=== PATIENT | female | born 1970 | race Caucasian/White ===

== ENCOUNTER 2023-11-16 09:32 | Emergency (ER) | payer OTHER ==
--- NOTE | 2023-11-16 09:47 | ED ---
Nausea/Vomiting/Diarrhea HPI - General Source: patient, police, RN notes reviewed Mode of arrival: EMS Limitations: no limitations - History of Present Illness MD complaint: nausea, vomiting <Jesenia Bradshaw - Last Filed: 11/16/23 09:46> - General Source: patient, RN notes reviewed Mode of arrival: EMS Limitations: no limitations <Mckinley Maria - Last Filed: 11/16/23 13:53> - General Chief complaint: Nausea/Vomiting/Diarrhea Stated complaint: vomiting Time Seen by Provider: 11/16/23 09:46 - History of Present Illness Initial comments: Quick Note: This is a 53-year-old female who presents to the emergency department for nausea, vomiting, and weakness. Symptoms started yesterday. She has generalized abdominal discomfort. She is currently at [facility] for opioid use and has been there for 4 days. (Jesenia Bradshaw) Patient is a 53-year-old female presenting to the emergency department from [facility]. Patient states she has been there for the last 4 days. Patient states since last night she has had nausea and vomiting. Patient states he has vomited close to 10 times. Patient did try Zofran without improvement of symp toms. No abdominal pain. No fever. No constipation or diarrhea. No history of chronic similar symptoms previously. (Mckinley Mraia) - Related Data Home Medications Medication Instructions Recorded Confirmed Acetaminophen Tab [Tylenol] 650 mg PO Q4H PRN 11/16/23 11/16/23 Calcium Carbonate [Tums] 1,000 mg PO Q4H PRN 11/16/23 11/16/23 Calcium/Magnesium/Zinc/Vitamin D 1 tab PO TID PRN 11/16/23 11/16/23 334/134/5mg Ibuprofen [Motrin Ib] 600 mg PO Q6H PRN 11/16/23 11/16/23 Methadone HCl [Methadone Intensol] 190 mg PO DAILY 11/16/23 11/16/23 Mirtazapine [Remeron] 15 mg PO HS 11/16/23 11/16/23 PHENobarbitaL [PHENobarbital] See Taper PO DIRECTED 11/16/23 11/16/23 cloNIDine HCL [Catapres] 0.1 mg PO QID 11/16/23 11/16/23 ondansetron HCL [Zofran] 8 mg PO Q6H PRN 11/16/23 11/16/23 Previous Rx's Medication Instructions Recorded Metoclopramide HCl 5 ml PO QID PRN #50 ml 11/16/23 Allergies Allergy/AdvReac Type Severity Reaction Status Date / Time No Known Allergies Allergy Verified 11/16/23 09:44 Review of Systems ROS Other: All systems not noted in ROS Statement are negative. <Jesenia Bradshaw - Last Filed: 11/16/23 09:46> ROS Other: All systems not noted in ROS Statement are negative. Constitutional: Denies: fever Eyes: Denies: eye pain ENT: Denies: ear pain Respiratory: Denies: cough Cardiovascular: Denies: chest pain Endocrine: Denies: fatigue Gastrointestinal: Reports: nausea, vomiting. Denies: abdominal pain, diarrhea, constipation Genitourinary: Denies: dysuria Musculoskeletal: Denies: back pain <Mckinley Maria - Last Filed: 11/16/23 13:53> ROS Statement: Those systems with pertinent positive or pertinent negative responses have been documented in the HPI. Past Medical History Past Medical History: No Reported History, Hypertension History of Any Multi-Drug Resistant Organisms: None Reported Past Surgical History: No Surgical Hx Reported Past Psychological History: No Psychological Hx Reported, Anxiety, Depression Smoking Status: Current every day smoker Past Alcohol Use History: None Reported Past Drug Use History: Opiates, Prescription Drug Abuse <Jesenia Bradshaw - Last Filed: 11/16/23 09:46> General Exam Limitations: no limitations <Jesenia Bradshaw - Last Filed: 11/16/23 09:46> Limitations: no limitations General appearance: alert, in no apparent distress Head exam: Present: normocephalic Eye exam: Present: normal appearance, PERRL, EOMI ENT exam: Present: normal oropharynx Neck exam: Present: normal inspection Cardiovascular Exam: Present: regular rate, normal rhythm GI/Abdominal exam: Present: soft. Absent: tenderness, guarding, rebound, rigid, pulsatile mass Extremities exam: Present: normal inspection. Absent: pedal edema, calf tenderness Neurological exam: Present: alert. Absent: motor sensory deficit Psychiatric exam: Present: normal affect, normal mood Skin exam: Present: normal color <Mckinley Maria - Last Filed: 11/16/23 13:53> - General Exam Comments Initial Comments: Visual Physical Exam Vital signs reviewed General: Well-appearing, nontoxic, no acute distress. Head: Normocephalic, atraumatic Eyes: PERRLA, EOMI ENT: Airway patent Chest: Nonlabored breathing Skin: No visual rash, normal skin tone Neuro: Alert and oriented 3 Musculoskeletal: No gross abnormalities (Jesenia Bradshaw) Course Vital Signs 11/16/23 11/16/23 09:41 13:28 Temperature 98 F Pulse Rate 65 89 Respiratory 18 18 Rate Blood Pressure 126/78 130/77 O2 Sat by Pulse 99 99 Oximetry Medical Decision Making <Jesenia Bradshaw - Last Filed: 11/16/23 09:46> - Lab Data Result diagrams: 11/16/23 11:05 11/16/23 11:05 <Mckinley Maria - Last Filed: 11/16/23 13:53> - Medical Decision Making I performed the QuickNote portion of this chart. Signed Jesenia Bradshaw PA-C. (Jesenia Bradshaw) Was pt. sent in by a medical professional or institution ([facility], [facility], urgent care, hospital, or senior care...) When possible be specific @ -[Patient was transferred from [facility] rehab facility did you speak to anyone other than the patient for history (EMS, parent, family, police, friend...)? What history was obtained from this source @ -No Did you review nursing and triage notes (agree or disagree)? Why? @ -I reviewed and agree with nursing and triage notes Were old charts reviewed (outside hosp., previous admission, EMS record, old EKG, old radiological studies, urgent care reports/EKG's, senior care records)? Report findings @ -Reviewed sheet from [facility] Differential Diagnosis (chest pain, altered mental status, abdominal pain women, abdominal pain men, vaginal bleeding, weakness, fever, dyspnea, syncope, headache, dizziness, GI bleed, back pain, seizure, CVA, palpatations, mental health, musculoskeletal)? @ -Differential Abdominal Pain Women: Appendicitis, Cholecystitis, diverticulosis, ischemic bowel, pancreatitis, hepatitis, UTI, gastroenteritis, AAA, incarcerated hernia, bowel obstruction, constipation, inflammatory bowel, hepatitis, peptic ulcer disease, splenic infarction, perforated viscus, vulvitis, ovarian torsion, PID, kidney stone, placenta abruption, this is not meant to be an all-inclusive list EKG interpreted by me (3pts min.). @ -As above X-rays interpreted by me (1pt min.). @ -None done CT interpreted by me (1pt min.). @ -None done U/S interpreted by me (1pt. min.). @ -None done What testing was considered but not performed or refused? (CT, X-rays, U/S, labs)? Why? @ -None What meds were considered but not given or refused? Why? @ -None Did you discuss the management of the patient with other professionals (professionals i.e. Dr., PA, [facility], lab, RT, psych nurse, social science analyst, study abroad coordinator, teacher, chief program officer, insurance case manager)? Give summary @ -No Was smoking cessation discussed for >3mins.? @ -No Was critical care preformed (if so, how long)? @ -No Were there social determinants of health that impacted care today? How? (Homele ssness, low income, unemployed, alcoholism, drug addiction, transportation, low edu. Level, literacy, decrease access to med. care, halfway, rehab)? @ -No Was there de-escalation of care discussed even if they declined (Discuss DNR or withdrawal of care, Hospice)? DNR status @ -No What co-morbidities impacted this encounter? (DM, HTN, Smoking, COPD, CAD, Cancer, CVA, ARF, Chemo, Hep., AIDS, mental health diagnosis, sleep apnea, morbid obesity)? @ -Opioid abuse Was patient admitted / discharged? Hospital course, mention meds given and route, prescriptions, significant lab abnormalities, going to OR and other pertinent info. @ -Patient reevaluated and feeling much better. Patient sitting upright at bedside. Patient is updated on results and need for follow-up. Patient will be prescribed Reglan as needed Undiagnosed new problem with uncertain prognosis? @ -No Drug Therapy requiring intensive monitoring for toxicity (Heparin, Nitro, Insulin, Cardizem)? @ -No Were any procedures done? @ -No Diagnosis/symptom? @ -Nausea and vomit Acute, or Chronic, or Acute on Chronic? @ -Acute Uncomplicated (without systemic symptoms) or Complicated (systemic symptoms)? @ -Default Side effects of treatment? @ -No Exacerbation, Progression, or Severe Exacerbation? @ -No Poses a threat to life or bodily function? How? (Chest pain, USA, PA, pneumonia, PE, COPD, DKA, ARF, appy, cholecystitis, CVA, Diverticulitis, Homicidal, Suicidal, threat to staff... and all critical care pts) @ -No (Mckinley Maria) - Lab Data Lab Results 11/16/23 11/16/23 11/16/23 Range/Units 11:05 11:05 11:05 WBC 9.9 (3.8-10.6) k/uL RBC 4.52 (3.80-5.40) m/uL Hgb 12.8 (11.4-16.0) gm/dL Hct 40.8 (34.0-46.0) % MCV 90.3 (80.0-100.0) fL MCH 28.2 (25.0-35.0) pg MCHC 31.3 (31.0-37.0) g/dL RDW 13.6 (11.5-15.5) % Plt Count 324 (150-450) k/uL MPV 7.8 Neutrophils % 87 % Lymphocytes % 9 % Monocytes % 3 % Eosinophils % 0 % Basophils % 0 % Neutrophils # 8.6 H (1.3-7.7) k/uL Lymphocytes # 0.9 L (1.0-4.8) k/uL Monocytes # 0.3 (0-1.0) k/uL Eosinophils # 0.0 (0-0.7) k/uL Basophils # 0.0 (0-0.2) k/uL Sodium 139 (137-145) mmol/L Potassium 4.7 (3.5-5.1) mmol/L Chloride 104 (98-107) mmol/L Carbon Dioxide 30 (22-30) mmol/L Anion Gap 5 mmol/L BUN 15 (7-17) mg/dL Creatinine 0.78 (0.52-1.04) mg/dL Est GFR (CKD-EPI)AfAm >90 (>60 ml/min/1.73 sqM) Est GFR (CKD-EPI)NonAf 87 (>60 ml/min/1.73 sqM) Glucose 89 (74-99) mg/dL Calcium 9.3 (8.4-10.2) mg/dL Total Bilirubin 0.3 (0.2-1.3) mg/dL AST 21 (14-36) U/L ALT 15 (4-34) U/L Alkaline Phosphatase 84 (38-126) U/L Total Protein 6.7 (6.3-8.2) g/dL Albumin 3.7 (3.5-5.0) g/dL Amylase 49 (30-110) U/L Lipase 80 (23-300) U/L Influenza Type A (PCR) Not Detected (Not Detectd) Influenza Type B (PCR) Not Detected (Not Detectd) RSV (PCR) Not Detected (Not Detectd) SARS-CoV-2 (PCR) Not Detected (Not Detectd) Disposition <Jesenia Bradshaw - Last Filed: 11/16/23 09:46> Is patient prescribed a controlled substance at d/c from ED?: No Time of Disposition: 13:51 <Mckinley Maria - Last Filed: 11/16/23 13:53> Clinical Impression: Vomiting Disposition: HOME SELF-CARE Condition: Stable Instructions (If sedation given, give patient instructions): Acute Nausea and Vomiting (ED) Additional Instructions: Please do follow-up with primary care physician in the next 1 or 2 days for recheck. Return for abdominal pain, fever, not tolerating oral intake, worsening symptoms or other concerns. Zofran or prescription for Reglan as needed for nausea or vomiting Prescriptions: Metoclopramide HCl 5 ml PO QID PRN #50 ml PRN Reason: Nausea Referrals: Dariel Cain MD [REFERRING] - 1-2 days
[2023-11-16 10:26] VITALS: RESP 18
[2023-11-16 11:26] LABS: ALT 15 U/L (4-34); AST 21 U/L (14-36); African American GFR (CKD) >90 (>60 ml/min/1.73 sqM); Albumin 3.7 g/dL (3.5-5.0); Alkaline Phosphatase 84 U/L (38-126); Amylase 49 U/L (30-110); Anion Gap 5 mmol/L; Blood Urea Nitrogen 15 mg/dL (7-17); Calcium 9.3 mg/dL (8.4-10.2); Carbon Dioxide 30 mmol/L (22-30); Chloride 104 mmol/L (98-107); Glucose 89 mg/dL (74-99); Lipase 80 U/L (23-300); Non-African American GFR(CKD) 87 (>60 ml/min/1.73 sqM); Potassium 4.7 mmol/L (3.5-5.1); Sodium 139 mmol/L (137-145); Total Bilirubin 0.3 mg/dL (0.2-1.3); Total Protein 6.7 g/dL (6.3-8.2)
[2023-11-16 11:47] LABS: Basophils % (A) 0 %; Eosinophils % (A) 0 %; HCT 40.8 % (34.0-46.0); HGB 12.8 gm/dL (11.4-16.0); Lymphocytes # (A) 0.9 k/uL (1.0-4.8); Lymphocytes % (A) 9 %; MCH 28.2 pg (25.0-35.0); MCHC 31.3 g/dL (31.0-37.0); MCV 90.3 fL (80.0-100.0); Mean Platelet Volume 7.8; Monocytes # (A) 0.3 k/uL (0-1.0); Monocytes % (A) 3 %; Neutrophils # (A) 8.6 k/uL (1.3-7.7); Neutrophils % (A) 87 %; Platelet Count 324 k/uL (150-450); RBC 4.52 m/uL (3.80-5.40); RDW 13.6 % (11.5-15.5); WBC 9.9 k/uL (3.8-10.6)
[2023-11-16] MEDS: FAMOTIDINE 20 MG/2 ML VIAL IV STA (12:58)
[2023-11-16] MEDS: METOCLOPRAMIDE 5 MG/ML 2 ML VIAL IVP STA (12:58)
[2023-11-16] MEDS: SODIUM CHLORIDE 0.9% 1,000 ML IV STA (12:58)
[2023-11-16] MEDS: ONDANSETRON 4 MG/2 ML VIAL IVP STA (12:58)
[2023-11-16 14:15] VITALS: BP 122/68; PULSE 75; TEMP 98.1
== END 2023-11-16 14:11 | disposition home or self-care (01) ==
LOC: EC 09:32
DX: R11.2 Nausea with vomiting, unspecified (principal); F11.10 Opioid abuse, uncomplicated; F17.200 Nicotine dependence, unspecified, uncomplicated
CPT/HCPCS: 36415; 80053; 82150; 83690; 85025; 87636; 99284; 96374; 96375 ×2; 96361; J2765; J2405; J3490

== ENCOUNTER 2024-01-05 10:26 | Emergency (ER) | payer OTHER ==
[2024-01-05 11:46] LABS: Basophils % (A) 0 %; Eosinophils % (A) 0 %; HGB 13.3 gm/dL (11.4-16.0); Lymphocytes # (A) 1.2 k/uL (1.0-4.8); Lymphocytes % (A) 8 %; MCH 28.7 pg (25.0-35.0); MCHC 31.7 g/dL (31.0-37.0); MCV 90.6 fL (80.0-100.0); Mean Platelet Volume 8.2; Monocytes # (A) 0.3 k/uL (0-1.0); Monocytes % (A) 2 %; Neutrophils # (A) 12.6 k/uL (1.3-7.7); Neutrophils % (A) 89 %; Platelet Count 326 k/uL (150-450); RBC 4.64 m/uL (3.80-5.40); RDW 13.6 % (11.5-15.5); WBC 14.2 k/uL (3.8-10.6)
--- NOTE | 2024-01-05 11:48 | ED ---
Nausea/Vomiting/Diarrhea HPI - General Chief complaint: Nausea/Vomiting/Diarrhea Stated complaint: Hypertension Time Seen by Provider: 01/05/24 10:33 Source: patient, EMS, RN notes reviewed Mode of arrival: EMS Limitations: no limitations - History of Present Illness Initial comments: This is a 53 year old female who presents to the emergency department for nausea, vomiting, and elevated blood pressure. Patient is currently at [facility] for fentanyl abuse and has been there for 5 days. States that she is on methadone and she is reportedly on the max dose of methadone. She started to develop nausea and vomiting at [facility] and was also noted to be hypertensive. Patient complaining of lower abdominal pain as well. [facility] believes that the patient may be withdrawing. Currently treated with clonidine 0.3 mg for the blood pressure. Received this around 9 AM. MD complaint: nausea, vomiting, abdominal pain - Related Data Home Medications Medication Instructions Recorded Confirmed Acetaminophen Tab [Tylenol] 650 mg PO Q4H PRN 11/16/23 11/16/23 Calcium Carbonate [Tums] 1,000 mg PO Q4H PRN 11/16/23 11/16/23 Calcium/Magnesium/Zinc/Vitamin D 1 tab PO TID PRN 11/16/23 11/16/23 334/134/5mg Ibuprofen [Motrin Ib] 600 mg PO Q6H PRN 11/16/23 11/16/23 Methadone HCl [Methadone Intensol] 190 mg PO DAILY 11/16/23 11/16/23 Mirtazapine [Remeron] 15 mg PO HS 11/16/23 11/16/23 PHENobarbitaL [PHENobarbital] See Taper PO DIRECTED 11/16/23 11/16/23 cloNIDine HCL [Catapres] 0.1 mg PO QID 11/16/23 11/16/23 ondansetron HCL [Zofran] 8 mg PO Q6H PRN 11/16/23 11/16/23 Previous Rx's Medication Instructions Recorded Metoclopramide HCl 5 ml PO QID PRN #50 ml 11/16/23 Ondansetron Odt [Zofran Odt] 4 mg PO Q8HR PRN #20 tab 01/05/24 Allergies Allergy/AdvReac Type Severity Reaction Status Date / Time No Known Allergies Allergy Verified 11/16/23 09:44 Review of Systems ROS Statement: Those systems with pertinent positive or pertinent negative responses have been documented in the HPI. ROS Other: All systems not noted in ROS Statement are negative. Past Medical History Past Medical History: Hypertension History of Any Multi-Drug Resistant Organisms: None Reported Past Surgical History: No Surgical Hx Reported Past Psychological History: Anxiety, Depression Smoking Status: Current every day smoker Past Alcohol Use History: None Reported Past Drug Use History: Opiates, Prescription Drug Abuse General Exam Limitations: no limitations General appearance: alert, in distress, other (shaking) Respiratory exam: Present: normal lung sounds bilaterally. Absent: respiratory distress, wheezes, rales, rhonchi, stridor Cardiovascular Exam: Present: regular rate, normal rhythm, normal heart sounds. Absent: systolic murmur, diastolic murmur, rubs, gallop, clicks GI/Abdominal exam: Present: soft, tenderness (Lower abdomen), normal bowel sounds. Absent: distended, guarding, rebound, rigid Neurological exam: Present: alert, oriented X3, CN II-XII intact Psychiatric exam: Present: normal affect, normal mood Skin exam: Present: warm, dry, intact, normal color. Absent: rash Course Vital Signs 01/05/24 01/05/24 01/05/24 10:55 11:56 13:09 Temperature 97 F L Pulse Rate 64 64 65 Respiratory 16 18 18 Rate Blood Pressure 181/85 130/116 177/72 O2 Sat by Pulse 100 97 100 Oximetry 01/05/24 14:51 Temperature 98.2 F Pulse Rate 77 Respiratory 18 Rate Blood Pressure 138/97 O2 Sat by Pulse 97 Oximetry Medical Decision Making - Medical Decision Making This is a 53 year old female who presents to the emergency department for nausea, vomiting, and hypertension. Was pt. sent in by a medical professional or institution? @ -No Did you speak to anyone other than the patient for history? @ -EMS and [facility] provided the majority of the history. Did you review nursing and triage notes? @ -Yes, and I agree, it is accurate with regards to the patient's symptoms. Were old charts reviewed? @ -No Differential Diagnosis? @ -Differential Nausea and Vomiting: Gastroenteritis, cholecystitis, appendicitis, pancreatitis, migraine, benign positional vertigo, food borne illness, pyelonephritis, irritable bowel syndrome, influenza, Covid, GERD, incarcerated hernia, intestinal obstruction, this is not meant to be an all-inclusive list. EKG interpreted by me (3pts min.)? @ -EKG interpreted by me demonstrating the following: Sinus rhythm. Ventricular rate 70 bpm, VA interval 166 ms, QRS duration 81 ms, QTc 426 ms. X-rays interpreted by me (1pt min.)? @ -Not obtained CT interpreted by me (1pt min.)? @ -CT scan of the abdomen and pelvis obtained. My interpretation identifies moderate stool burden. U/S interpreted by me (1pt. min.)? @ -Not obtained What testing was considered but not performed? (CT, X-rays, U/S, labs)? Why? @ -None What meds were considered but not given? Why? @ -None Did you discuss the management of the patient with other professionals? @ -No Did you reconcile home meds? @ -No Was smoking cessation discussed for >3mins.? @ -I discussed smoking cessation for greater than 3 minutes. The risk of smoking were discussed with the patient including but not limited to risks of cancer, stroke, coronary artery disease and COPD. Also discussed with patient were multiple methods of quitting smoking. Lastly we discussed the financial cost of smoking. Was critical care preformed (if so, how long)? @ -No Were there social determinants of health that impacted care today? How? (Homelessness, low income, unemployed, alcoholism, drug addiction, transportation, low edu. Level, literacy, decrease access to med. care, skilled nursing, rehab)? @ -Drug addiction, leading to the patient being on methadone and experiencing withdrawal symptoms. Was there de-escalation of care discussed even if they declined? (Discuss DNR or withdrawal of care, Hospice)? @ -No What co-morbidities impacted this encounter? (DM, HTN, Smoking, COPD, CAD, Cancer, CVA, Hep., AIDS, mental health diagnosis, sleep apnea, morbid obesity)? @ -HTN, drug addiction, smoking Was patient admitted / discharged? @ -Discharged. Lab work demonstrates mild leukocytosis and signs of dehydra tion. Urinalysis negative for signs of infection. Urine drug screen also positive for cocaine. CT scan of the abdomen and pelvis demonstrates moderate stool throughout the colon suggestive of constipation. She has a nonspecific mildly distended gallbladder. Patient denies any pain in this region. She was treated with IV fluids, Zofran, and Toradol with improvement in symptoms. Ativan administered as well for the patient's agitation. She had significant symptomatic improvement and was tolerating oral intake. She also continued to walk out of the emergency department to go smoke cigarettes despite being told multiple times this was not okay. Prescription for Zofran provided with dosing instructions reviewed. She is advised to slowly advance her diet as tolerated and remain well-hydrated. Patient discharged back to [facility] in stable condition. Undiagnosed new problem with uncertain prognosis? @ -None Drug Therapy requiring intensive monitoring for toxicity (Heparin, Nitro, Insulin, Cardizem)? @ -None Were any procedures done? @ -None Diagnosis/symptom? @ -Nausea and vomiting, withdrawals Acute, or Chronic, or Acute on Chronic? @ -Acute Uncomplicated (without systemic symptoms) or Complicated (systemic symptoms)? @ -Uncomplicated Side effects of treatment? @ -None Exacerbation, Progression, or Severe Exacerbation] @ -Not applicable Poses a threat to life or bodily function? @ -No Return precautions reviewed in depth, the patient is instructed to return to the emergency department with any new, worsening, or concerning symptoms. Patient verbalized understanding. This case was discussed in detail with the attending ED physician, Dr. Feldman. Presentation, findings, and treatment plan discussed in detail as well. - Lab Data Result diagrams: 01/05/24 10:37 01/05/24 11:42 Lab Results 01/05/24 01/05/24 01/05/24 Range/Units 10:37 11:41 11:41 WBC 14.2 H (3.8-10.6) k/uL RBC 4.64 (3.80-5.40) m/uL Hgb 13.3 (11.4-16.0) gm/dL Hct 42.0 (34.0-46.0) % MCV 90.6 (80.0-100.0) fL MCH 28.7 (25.0-35.0) pg MCHC 31.7 (31.0-37.0) g/dL RDW 13.6 (11.5-15.5) % Plt Count 326 (150-450) k/uL MPV 8.2 Neutrophils % 89 % Lymphocytes % 8 % Monocytes % 2 % Eosinophils % 0 % Basophils % 0 % Neutrophils # 12.6 H (1.3-7.7) k/uL Lymphocytes # 1.2 (1.0-4.8) k/uL Monocytes # 0.3 (0-1.0) k/uL Eosinophils # 0.0 (0-0.7) k/uL Basophils # 0.0 (0-0.2) k/uL Sodium (137-145) mmol/L Potassium (3.5-5.1) mmol/L Chloride (98-107) mmol/L Carbon Dioxide (22-30) mmol/L Anion Gap mmol/L BUN (7-17) mg/dL Creatinine (0.52-1.04) mg/dL Est GFR (CKD-EPI)AfAm (>60 ml/min/1.73 sqM) Est GFR (CKD-EPI)NonAf (>60 ml/min/1.73 sqM) Glucose (74-99) mg/dL Calcium (8.4-10.2) mg/dL Magnesium (1.6-2.3) mg/dL Total Bilirubin (0.2-1.3) mg/dL AST (14-36) U/L ALT (4-34) U/L Alkaline Phosphatase (38-126) U/L Troponin I (0.000-0.034) ng/mL Total Protein (6.3-8.2) g/dL Albumin (3.5-5.0) g/dL Amylase (30-110) U/L Lipase (23-300) U/L Urine Color Colorless Urine Appearance Clear (Clear) Urine pH 7.5 (5.0-8.0) Ur Specific Ubly 1.016 (1.001-1.035) Urine Protein Negative (Negative) Urine Glucose (UA) Negative (Negative) Urine Ketones Negative (Negative) Urine Blood Negative (Negative) Urine Nitrite Negative (Negative) Urine Bilirubin Negative (Negative) Urine Urobilinogen <2.0 (<2.0) mg/dL Ur Leukocyte Esterase Trace H (Negative) Urine WBC 2 (0-5) /hpf Ur Squamous Epith Cells 2 (0-4) /hpf Urine Bacteria Occasional H (None) /hpf Urine Mucus Rare H (None) /hpf Urine Opiates Screen Not Detected (NotDetected) Ur Oxycodone Screen Not Detected (NotDetected) Urine Methadone Screen Detected H (NotDetected) Ur Barbiturates Screen Not Detected (NotDetected) U Tricyclic Antidepress Not Detected (NotDetected) Ur Phencyclidine Scrn Not Detected (NotDetected) Ur Amphetamines Screen Not Detected (NotDetected) U Methamphetamines Scrn Not Detected (NotDetected) U Benzodiazepines Scrn Not Detected (NotDetected) Urine Cocaine Screen Detected H (NotDetected) U Marijuana (THC) Screen Not Detected (NotDetected) 01/05/24 01/05/24 Range/Units 11:42 11:42 WBC (3.8-10.6) k/uL RBC (3.80-5.40) m/uL Hgb (11.4-16.0) gm/dL Hct (34.0-46.0) % MCV (80.0-100.0) fL MCH (25.0-35.0) pg MCHC (31.0-37.0) g/dL RDW (11.5-15.5) % Plt Count (150-450) k/uL MPV Neutrophils % % Lymphocytes % % Monocytes % % Eosinophils % % Basophils % % Neutrophils # (1.3-7.7) k/uL Lymphocytes # (1.0-4.8) k/uL Monocytes # (0-1.0) k/uL Eosinophils # (0-0.7) k/uL Basophils # (0-0.2) k/uL Sodium 141 (137-145) mmol/L Potassium 4.7 (3.5-5.1) mmol/L Chloride 104 (98-107) mmol/L Carbon Dioxide 31 H (22-30) mmol/L Anion Gap 6 mmol/L BUN 28 H (7-17) mg/dL Creatinine 0.84 (0.52-1.04) mg/dL Est GFR (CKD-EPI)AfAm >90 (>60 ml/min/1.73 sqM) Est GFR (CKD-EPI)NonAf 79 (>60 ml/min/1.73 sqM) Glucose 124 H (74-99) mg/dL Calcium 9.7 (8.4-10.2) mg/dL Magnesium 1.9 (1.6-2.3) mg/dL Total Bilirubin 0.4 (0.2-1.3) mg/dL AST 23 (14-36) U/L ALT 15 (4-34) U/L Alkaline Phosphatase 109 (38-126) U/L Troponin I 0.017 (0.000-0.034) ng/mL Total Protein 7.5 (6.3-8.2) g/dL Albumin 4.4 (3.5-5.0) g/dL Amylase 60 (30-110) U/L Lipase 121 (23-300) U/L Urine Color Urine Appearance (Clear) Urine pH (5.0-8.0) Ur Specific Ubly (1.001-1.035) Urine Protein (Negative) Urine Glucose (UA) (Negative) Urine Ketones (Negative) Urine Blood (Negative) Urine Nitrite (Negative) Urine Bilirubin (Negative) Urine Urobilinogen (<2.0) mg/dL Ur Leukocyte Esterase (Negative) Urine WBC (0-5) /hpf Ur Squamous Epith Cells (0-4) /hpf Urine Bacteria (None) /hpf Urine Mucus (None) /hpf Urine Opiates Screen (NotDetected) Ur Oxycodone Screen (NotDetected) Urine Methadone Screen (NotDetected) Ur Barbiturates Screen (NotDetected) U Tricyclic Antidepress (NotDetected) Ur Phencyclidine Scrn (NotDetected) Ur Amphetamines Screen (NotDetected) U Methamphetamines Scrn (NotDetected) U Benzodiazepines Scrn (NotDetected) Urine Cocaine Screen (NotDetected) U Marijuana (THC) Screen (NotDetected) Disposition Clinical Impression: Nausea and vomiting, Hypertension, Nicotine dependence Disposition: HOME SELF-CARE Instructions (If sedation given, give patient instructions): Acute Nausea and Vomiting (ED) Additional Instructions: Return to the emergency department with any new, worsening, or concerning symptoms. Take the Zofran up to every 8 hours as needed for nausea and vomiting. Slowly advance your diet as tolerated and remain well-hydrated. Follow up with your primary care provider in 1-2 days. Prescriptions: Ondansetron Odt [Zofran Odt] 4 mg PO Q8HR PRN #20 tab PRN Reason: Nausea And Vomiting Is patient prescribed a controlled substance at d/c from ED?: No Referrals: None,Stated [Primary Care Provider] - 1-2 days Time of Disposition: 14:27
[2024-01-05 11:52] LABS: Appearance,Urine Clear (Clear); Bacteria,Urine Occasional /hpf; Bilirubin,Urine Negative (Negative); Blood,Urine Negative (Negative); Color,Urine Colorless; Glucose,Urine (UA) Negative (Negative); Ketones,Urine Negative (Negative); Leukocyte Esterase,Urine Trace (Negative); Mucus,Urine Rare /hpf; Nitrite,Urine Negative (Negative); PH, Urine 7.5 (5.0-8.0); Protein,Urine Negative (Negative); Specific Gravity,Urine 1.016 (1.001-1.035); Squamous Epithelial Cell,Urine 2 /hpf (0-4); Urobilinogen,Urine <2.0 mg/dL (<2.0); WBC,Urine 2 /hpf (0-5)
[2024-01-05] MEDS: LORazepam 2 MG/ML INJ IV STA ×2 (11:52→12:36)
[2024-01-05] MEDS: KETOROLAC 15 MG/ML 1 ML VIAL IVP STA (11:52)
[2024-01-05] MEDS: ONDANSETRON 4 MG/2 ML VIAL IVP STA ×2 (11:52→13:05)
[2024-01-05] MEDS: PANTOPRAZOLE 40 MG/10 ML VIAL IVP STA (11:53)
[2024-01-05] MEDS: SODIUM CHLORIDE 0.9% 2,000 ML IV STA (11:55)
[2024-01-05 11:57] VITALS: RESP 18
[2024-01-05 11:58] LABS: Amphetamine Screen,Urine Not Detected (NotDetected); Barbiturate Screen,Urine Not Detected (NotDetected); Benzodiazepines Screen,Urine Not Detected (NotDetected); Cocaine Screen,Urine Detected (NotDetected); Methadone Screen, Urine Detected (NotDetected); Opiate Screen,Urine Not Detected (NotDetected); Oxycodone Screen, Urine Not Detected (NotDetected); Phencyclidine Screen,Urine Not Detected (NotDetected); Tricyclic Antidepressant,Urine Not Detected (NotDetected); Urn Cannabinoid Scrn Not Detected (NotDetected)
[2024-01-05 12:05] LABS: ALT 15 U/L (4-34); AST 23 U/L (14-36); African American GFR (CKD) >90 (>60 ml/min/1.73 sqM); Albumin 4.4 g/dL (3.5-5.0); Alkaline Phosphatase 109 U/L (38-126); Amylase 60 U/L (30-110); Anion Gap 6 mmol/L; Blood Urea Nitrogen 28 mg/dL (7-17); Calcium 9.7 mg/dL (8.4-10.2); Carbon Dioxide 31 mmol/L (22-30); Chloride 104 mmol/L (98-107); Glucose 124 mg/dL (74-99); Lipase 121 U/L (23-300); Magnesium 1.9 mg/dL (1.6-2.3); Non-African American GFR(CKD) 79 (>60 ml/min/1.73 sqM); Potassium 4.7 mmol/L (3.5-5.1); Sodium 141 mmol/L (137-145); Total Bilirubin 0.4 mg/dL (0.2-1.3); Total Protein 7.5 g/dL (6.3-8.2)
[2024-01-05] MEDS: NICOTINE 21MG/24HR PATCH TRANSDERM STA (12:36)
--- NOTE | 2024-01-05 13:18 | CT ---
EXAMINATION TYPE: CT abdomen pelvis wo con CT DLP: 464.1 mGycm, Automated exposure control for dose reduction was used. DATE OF EXAM: 01/05/2024 12:31 PM COMPARISON: None. CLINICAL INDICATION:Female, 53 years old with history of Lower abdominal pain; lower abdominal pain n ausea, vomiting TECHNIQUE: Axial CT of the abdomen and pelvis. Sagittal and coronal reformats were created on a [employer] workstation. Contrast used: mL of , (none if empty) Oral contrast used: without Oral Contrast (none if empty) FINDINGS: LOWER CHEST: Unremarkable lung bases. Heart size upper normal. ABDOMEN LIVER: Unremarkable GALLBLADDER AND BILE DUCTS: Gallbladder appears mildly distended without clear evidence of inflammato ry changes or calcified gallstones. PANCREAS: Unremarkable. SPLEEN: Unremarkable. ADRENAL GLANDS: Unremarkable. KIDNEYS AND URETERS: Partially exophytic 19 mm hypodensity from the right superior pole, likely a cys t. No visible urinary tract calculi or hydronephrosis. There are several pelvic phleboliths. PELVIS BLADDER: Unremarkable REPRODUCTIVE: Uterus and adnexal regions appear grossly unremarkable, though not well assessed by CT. ABDOMEN & PELVIS STOMACH AND BOWEL: Stomach and small bowel are nondistended, no evidence of obstruction. What seems to be the appendix appears unremarkable. Unusual appearing peripherally calcified structure with in ternal stool signature within the right colon, could be fecalith. Otherwise moderate stool throughout the colon without evidence of an acute colonic abnormality. Fecalization of distal small bowel sugge sting slow transit. PERITONEUM/RETROPERITONEUM: No evidence of pneumoperitoneum or free fluid. VASCULATURE: Mild atherosclerotic calcifications are present throughout the abdominal aorta and its b ranches. No evidence of aortic aneurysm. LYMPH NODES: No enlarged nodes by CT size criteria. SOFT TISSUE/ABDOMINAL WALL: Unremarkable MUSCULOSKELETAL: No acute osseous abnormalities. Mild disc degeneration changes are present throughou t the thoracolumbar spine. IMPRESSION: 1. No evidence of urinary tract calculi or hydronephrosis. 2. No evidence of bowel obstruction, free fluid, or free air. Normal-appearing appendix. 3. Moderate stool throughout the colon with fecalization of distal small bowel suggesting slow trans it. Correlate for constipation. 4. Mildly distended gallbladder, nonspecific. If concern for development of acute cholecystitis, ult rasound or HIDA may further evaluate.
[2024-01-05] MEDS: ONDANSETRON 4 MG ODT STARTER PACK 2 TAB BTL PO STA (14:48)
[2024-01-05 14:52] VITALS: BP 138/97; PULSE 77; TEMP 98.2
== END 2024-01-05 14:52 | disposition home or self-care (01) ==
LOC: EC 10:26
DX: I10 Essential (primary) hypertension (principal); R11.2 Nausea with vomiting, unspecified; F19.239 Other psychoactive substance dependence with withdrawal, unspecified; F17.210 Nicotine dependence, cigarettes, uncomplicated; Z79.899 Other long term (current) drug therapy
CPT/HCPCS: 99285; 96374; 96375 ×2; 96376 ×2; 99406; 36415; 93005; 80053; 82150; 83690; 83735; 84484; 85025; 81001; 80306; 74176; S4990; J2060; J2405; J1885; S0119